=== PATIENT | male | born 2005 | race Caucasian/White ===

== ENCOUNTER 2023-11-13 06:12 | Emergency (ER) | payer OTHER, MEDICAID, SELFPAY ==
--- NOTE | 2023-11-13 06:14 | ED_ITS ---
HPI - General Adult General Time Seen by Provider: 06:14 Date Seen: 11/13/23 Chief complaint: Extremity Pain/Injury, Lower Stated complaint: knee injury/work comp Time Seen by Provider: 11/13/23 06:14 Source: patient, RN notes reviewed and old records reviewed Mode of arrival: ambulatory Limitations: no limitations History of Present Illness HPI narrative: 18-year-old male who presents today with knee injury. Patient was at work pushing a cart that tipped and subsequently rolled back and hit his left leg. Complains predominantly of pain in the left knee. Able to ambulate. Has not taken anything for this. Denies any other injuries Related Data Home Medications Medication Instructions Recorded Confirmed No Known Home Medications 11/13/23 11/13/23 Allergies Allergy/AdvReac Type Severity Reaction Status Date / Time No Known Drug Allergies Allergy Verified 11/13/23 07:04 PFSH PFS Social History Smoking Status: Former smoker What tobacco products do you use: cigarettes Smoking quit date/years: <= 15 years ago Do you use any of these nicotine containing products: Vaping Products Second hand tobacco smoke exposure: No How often do you have a drink containing alcohol: never AUDIT-C Alcohol total score: 0 Non-prescribed substance use: marijuana (any form) service: No Exam Narrative: Exam Narrative: General: well nourished , NAD Head: Atraumatic and normocephalic ENT: External ears and external nose are normal Eyes: Conjunctiva clear, pupils are equal reactive, external ocular motions are intact Neck: Full spontaneous range of motion of the neck Lungs: No respiratory distress Musculoskeletal: Tenderness along the medial joint line on the left, no bruising or swelling, quadriceps mechanism is intact, no joint effusion Neurologic: No gross focal neurologic deficits Skin: No rashes Psych: Mood and affect are appropriate Const: Vital Signs, click to edit/add: Vital Signs - 24 hr 11/13/23 06:32 Temperature 98.7 F Pulse Rate [Right Pulse Oximeter] 78 Respiratory Rate 20 Blood Pressure [Le ft Upper Arm] 115/71 Pulse Oximetry 98 Oxygen Delivery Me thod Room Air Course Course ED Course: Patient seen and examined, prior records are reviewed. Patient presents today with blunt injury of the left knee, denies twisting. On exam, no swelling or joint effusion, extensor mechanism intact, no laceration. Most likely contusion but given pain along the bony joint line medially, cannot exclude fractures or x-rays ordered. Ibuprofen ordered for pain Reevaluation(s) Time of Reevaluation #1: 07:36 Reevaluation #1: X-ray of the left knee independently interpreted by me does not demonstrate any acute bony abnormalities or effusion. Patient is stable for discharge with outpatient follow-up. Vital Signs Vital signs: Initial Vital Signs Temperature 98.7 F 11/13/23 06:32 Temperature Source Temporal Artery Scan 11/13/23 06:32 Pulse Rate 78 11/13/23 06:32 Pulse Rhythm Regular 11/13/23 06:32 Respiratory Rate 20 11/13/23 06:32 Blood Pressure 115/71 11/13/23 06:32 Blood Pressure Mean 85 11/13/23 06:32 Blood Pressure Position Sitting 11/13/23 06:32 Pulse Oximetry 98 11/13/23 06:32 Oxygen Delivery Method Room Air 11/13/23 06:32 Vital Signs Temperature 98.7 F 11/13/23 06:32 Pulse Rate 78 11/13/23 06:32 Respiratory Rate 20 11/13/23 06:32 Blood Pressure 115/71 11/13/23 06:32 Pulse Oximetry 98 11/13/23 06:32 Oxygen Delivery Method Room Air 11/13/23 06:32 Temperature 98.7 F 11/13/23 06:32 Pulse Rate 78 11/13/23 06:32 Respiratory Rate 20 11/13/23 06:32 Blood Pressure 115/71 11/13/23 06:32 Pulse Oximetry 98 11/13/23 06:32 Oxygen Delivery Method Room Air 11/13/23 06:32 Medications Administered Medications: Discontinued Medications Generic Name Dose Route Start Last Admin Trade Name Pastora PRN Reason Stop Dose Admin Ibuprofen 600 mg 11/13/23 07:00 11/13/23 07:15 Ibuprofen 200 Mg Tablet PO 11/13/23 07:01 600 mg ONCE ONE Administration Discharge Plan Discharge Clinical Impression: Contusion of knee, left Patient Disposition: Home, Self-Care Condition: Stable Instructions: Contusion in Adults (ED) Additional Instructions: Tylenol and ibuprofen as needed for pain Ice 15-20 minutes at a time every 2-3 hours while awake for 24 hours Discharge Diet: Regular Prescriptions: No Action No Known Home Medications Stand Alone [facility]: [facility] Info Inst[facility]
[2023-11-13 06:32] VITALS: BP 115/71; PULSE 78; RESP 20; TEMP 37.1; O2SAT 98; BMI 18.8
--- NOTE | 2023-11-13 06:45 | CRLHL7_ITS ---
For Patients: As a result of the Cures Act, medical imaging exams and procedure reports are released immediately into your electronic medical record. You may view this report before your referring provider. If you have questions, please contact your health care provider. Indication: Trauma, medial pain Technique: Three views Comparison: None Findings/Impression: Bones: Alignment is normal. No fractures or bone lesions. Joint spaces: Unremarkable. Soft tissues: Unremarkable. Dictated by Ramy Crespo MD @ 11/13/2023 8:12:49 AM (Electronically Signed)
--- OUTSIDE RECORDS SUMMARY | 2023-11-13 06:54 | XMS_ITS | Clinical Summary ---
Author Name Unknown Organization [facility] [facility] Address [place], [place] [address] Care Team Providers Care Consultant [employer]. Vice President [employer] (Ex ) Name Role Phone Clinic, [employer] [facility] Pro vider Allergies No known active allergies Medications No known medications Immunizations Name Administration Dates Next Due [id number] (Pediarix) 03/21/2004,01/13/2004,0 2003 HIB PRP-OMP (PedvaxHIB) 01/13/2004,2003 Hepatitis B (Peds) 2003 MMR 10/21/2004 Pneumococcal conj 7-Valent (Prevnar 7) 4,03/21/2004 Tuberculin (PPD) 06/08/2004 Varicella Vaccine 10/21/2004 Social History Tobacco Use Types Packs/Day Years Used Date Smoking Tobacco: Never Alcohol Use Standard Drinks/Week Comments No 0 (1 standard drink = 0.6 oz pur e alcohol) Sex and Gender Information Value Date Recorded Sex Assigned at Not on file Gender Identity Not on file Sexual Orientation Not on file Obstetrics History Last Filed Vital Signs Vital Sign Reading Time Taken Comments Blood Pressure 152/98 10/29/2022 5:48 PM PIE FILLER Pulse 88 10/29/2022 5:48 PM PIE FILLER Temperature 36.7 ??C (98.1 ??F) 10/29/2022 5:48 PM CS T Respiratory Rate 18 10/29/2022 5:48 PM PIE FILLER Oxygen Saturation 98% 10/29/2022 5:48 PM PIE FILLER Inhaled Oxygen Concentration - - Weight 60.1 kg (132 lb 8 oz) 10/29/2022 5:48 PM PIE FILLER Height 180.3 cm (5' 11) 10/29/2022 5:48 PM PIE FILLER Body Mass Index 18.48 10/29/2022 5:48 PM PIE FILLER Plan of Treatment Health Maintenance Due Date Last Done Comments COVID-19 vaccine series (#1) 03/16/2004 Well Child Check for age 3-20 09/11/2008 09/11/2007 HPV series for age 9-26 (1 - Male 2-dose series) 2014 Tdap 2014 Depression screening for age 12+ 2015 BMI (ht and wt on same day) for age 18+ 2021 Hepatitis C screening for ag e 18-79 2021 Influenza for age 9-49 06/08/2023 Tetanus booster 2023 Pneumococcal series for age 6-64 Aged Out 06/08/2004, 03/21/2004 No longer eligible based on patient's age to complete this topic HIV for age 15-65 Completed 10/14/2022 Meningococcal series for age 11-21 Aged Out No longer eligible b ased on patient's age to complete this topic Care Teams Consultant [employer]. Vice President [employer] (Ex ) Relationship Specialty Start Date End Date Clinic, [address] [address] PCP - General 06/07/21
--- OUTSIDE RECORDS SUMMARY | 2023-11-13 06:54 | XMS_ITS | Data Portability ---
Author Name Unknown Address [address] [place] [address] Phone [phone] Organization [place] [facility] Address [address] [place] [phone] Assessment No assessment recorded. Plan of Treatment Reminders Order Date Submit Date Provider Last Modified By Organization Details Last Modified Time Details Appointments None recorded. Lab rapid strep group A, throat 2021 022 [facility], [address] [place] [address], [phone], 17:33:36 H pylori Ag, stool 2021 022 einamagua Not available 19:27:38 Referral None recorded. Procedures None recorded. Surgeries None recorded. Imaging None recorded. Medication Orders omeprazole 40 mg capsule,de layed release 2021 022 [facility], [address] [place], [address], 17:50:34 Patient TargetsNo targets recorded. Patient Instructions Encounter Date Encounter Id Patient Instructions Last Modified By Organization Details Last Modified Time 08/21/2022 [id number] gargle, rtc if not improved sonya Not available 08/21/2022 20:16:44 note written sonya Not available 20:17:53 10/27/2021 [id number] eat slowly and avoid any foods that cause queeziness sonya Not available 10/27/2021 12:16:01 Reason for Referral None Reported. Results Created Date Observation Date Name Description Value Unit Range Abnormal Flag LastModifiedBy Organization Detail LastModifiedTime Result Notes None recorded. Medical Equipment None Reported. Allergies No known drug allergies Medications Name Sig Start Date Stop Date Status Note LastModified by Organization Details LastModified Time omeprazole 40 mg capsule,joe yed release TAKE 1 CAPSULE EVERY DAY BY ORAL ROUTE. active Not Available Not Available No t Available omeprazole 20 mg capsule,joe yed release TAKE 1 CAPSULE EVERY DAY BY ORAL ROUTE. active Not Available Not Available No t Available COVID-19 test specimen collection TEST DIRECTED active Not Available Not Available No t Available Vitals Date Recorded Body weight Systolic blood pressure Diastolic blood pressure Provider Name and Address Organization Details Last Updated DateTime 10/27/2021 44000.79 g 123 mm[Hg] 72 mm[Hg] Quincy Kincaid MD [address] [place] [address], [phone], [facility] 10/27/2021 12:11:27 Date Recorded Body temperature Provider Name a pa Address Organization Details Last Updated DateTime 08/21/2022 98.6 [degF] Jennifer La [address] [place] [address], [phone], [facility] 08/21/2022 20:13:20 Social History None recorded. Functional Status None recorded. Mental Status None recorded. Family History Nothing Reported. Medical History No medical history recorded. Past Encounters Encounter ID Performer Location Encounter Start Date Encounter Closed Date Diagnosis/Indication Quincy Kincaid MD [facility] [address] [place] [id number] 10/27/2021 11:48:44 10/27/2021 12:15:21 Mild dietary indigestion [id number] CHARLEY NESBITT [facility] [address] [place] [id number] 11/02/2021 16:54:34 11/02/2021 17:17:50 [id number] Quincy Kincaid MD [facility] [address] [place] [id number] 08/21/2022 16:33:22 08/21/2022 17:46:16 Pain in throat Health Concerns Section Related Observation LastModified by Organization Detai ls LastModified Time None Recorded Concern Status LastModified by Organization Details LastModified Time None Recorded Advance Directives Directive None Recorded Payers Encounter Date Sequence Insurance Name Policy Number Policy Ortiz Covered Member ID Ortiz Member ID Guarantor Name 08/21/2022 SLIDING FEE SCHEDULE - DISCOUNT Jayro Bautista 11/02/2021 SLIDING FEE SCHEDULE - DISCOUNT Jayro Givenshlke 10/27/2021 SLIDING FEE SCHEDULE - DISCOUNT Jayro Bautista Notes Date Note Type Note Provider Name and Address Organization Details Recorded Time 10/27/2021 text/html HPI Notes: several days of quezzy stomach, over eating last week end and some reflux sx, no odyno or dysphagia, no melena but down two lbs, had COVID and has some diff with taste and smell Quincy Kincaid MD [address] [facility] [place], [phone], [facility] 10/27/2021 12:16:21 11/02/2021 text/html HPI Notes: scheduled for covid vaccine, pt was a no show CHARLEY NESBITT [address] [facility] [place], [phone], [facility] 12/21/2021 11:40:06
[2023-11-13] MEDS: IBUPROFEN 200 MG TABLET 600 MG PO (07:15)
== END 2023-11-13 07:55 | disposition home or self-care (01) ==
PROVIDERS: Emergency Provider Family Medicine
DX: S80.02XA Contusion of left knee, initial encounter (principal); W22.8XXA Striking against or struck by other objects, initial encounter
CPT/HCPCS: 73562; 99283; 99284; A9270

== ENCOUNTER 2024-02-21 16:34 | Emergency (ER) | payer OTHER, SELFPAY ==
[2024-02-21 16:55] VITALS: BP 126/75; PULSE 87; RESP 16; TEMP 36.9; O2SAT 98; BMI 19.5
--- NOTE | 2024-02-21 18:35 | ED.WOUNDLAC ---
HPI - Wound/Laceration General Chief Complaint: Laceration/Wound Stated Complaint: cut on R pinky Time Seen by Provider: 02/21/24 17:59 History of Present Illness HPI narrative: This 18-year-old male comes in with a laceration to his right hand that occurred at work prior to arrival. He was attempting to lift a washer and somehow cut his right hand. He has a 1.5 cm linear laceration on the palmar aspect of the MP joint of the 5th digit on his right hand. His last tetanus was administered 8 years ago. Related Data Previous Rx's Medication Instructions Recorded omeprazole 20 mg capsule,delayed 20 mg PO QDAY #90 caps 02/06/24 release Allergies Allergy/AdvReac Type Severity Reaction Status Date / Time No Known Drug Allergies Allergy Verified 02/06/24 15:40 Review of Systems Status of ROS: Reports: 10 or more systems reviewed and unremarkable except as noted in History and below Narrative: Constitutional: No fevers, no weight gain or loss. Eyes: No discharge. No vision changes. HENT: No congestion, no sore throat, no ear pain. Cardiovascular: No chest pain, no palpitations. Respiratory: No shortness of breath, no wheezes, no cough. Gastrointestinal: No abdominal pain, no vomiting, no diarrhea. Genitourinary: No dysuria, no hematuria. Musculoskeletal: Normal range of motion. Skin: No rashes, no pruritis. Neurological: No dizziness, weakness, sensory change, speech change. Endo/Heme/Allergies: No bruising or bleeding. No polydipsia. Pysch: no suicidality, no anxiety, no insomnia. All other systems reviewed and are negative. [facility] Social History (Updated 11/13/23 @ 07:42 by Tejinder Peralta MD) Smoking Status: Former smoker What tobacco products do you use: cigarettes Smoking quit date/years: <= 15 years ago Do you use any of these nicotine containing products: Vaping Products Second hand tobacco smoke exposure: No How often do you have a drink containing alcohol: never AUDIT-C Alcohol total score: 0 Non-prescribed substance use: marijuana (any form) service: No Exam Narrative: Exam Narrative: Constitutional: Well-developed, well-nourished, no acute distress. HEENT: Normocephalic, atraumatic. Neck: Normal range of motion. Nontender. Supple. Heart: Intact distal pulses. Lungs: No chest discomfort. No wheezes, rhonchi, or rales. Abdomen: Nontender. Back: Normal range of motion. Extremities: Normal range of motion. 1.5 cm linear laceration on the palm of the right hand as described above. Skin: Intact. No rash. Warm. No erythema or pallor. Neurologic: No altered sensation. No weakness. Alert and oriented. Psychiatric: No suicidality. No anxiety or depression. No insomnia. Nursing notes and vitals signs are reviewed. Const: Vital Signs, click to edit/add: Vital Signs - 24 hr 02/21/24 16:55 Temperature 98.5 F Pulse Rate [Left P ulse Oximeter] 87 Respiratory Rate 16 Blood Pressure [Ri ght Upper Arm] 126/75 Pulse Oximetry 98 Oxygen Delivery Me thod Room Air Course Vital Signs Vital signs: Initial Vital Signs Temperature 98.5 F 02/21/24 16:55 Temperature Source Temporal Artery Scan 02/21/24 16:55 Pulse Rate 87 02/21/24 16:55 Respiratory Rate 16 02/21/24 16:55 Blood Pressure 126/75 02/21/24 16:55 Blood Pressure Mean 92 02/21/24 16:55 Pulse Oximetry 98 02/21/24 16:55 Oxygen Delivery Method Room Air 02/21/24 16:55 Vital Signs Temperature 98.5 F 02/21/24 16:55 Pulse Rate 87 02/21/24 16:55 Respiratory Rate 16 02/21/24 16:55 Blood Pressure 126/75 02/21/24 16:55 Pulse Oximetry 98 02/21/24 16:55 Oxygen Delivery Method Room Air 02/21/24 16:55 Temperature 98.5 F 02/21/24 16:55 Pulse Rate 87 02/21/24 16:55 Respiratory Rate 16 02/21/24 16:55 Blood Pressure 126/75 02/21/24 16:55 Pulse Oximetry 98 02/21/24 16:55 Oxygen Delivery Method Room Air 02/21/24 16:55 MDM - Wound/Laceration MDM Narrative Medical decision making narrative: As patient has a laceration on his right hand. The wound was cleansed and the patient is requesting Dermabond repair. This was done with excellent results. A Band-Aid was then applied and instructions regarding wound care were given. Discharge Plan Discharge Clinical Impression: Laceration Patient Disposition: Home, Self-Care Condition: Improved Additional Instructions: Keep wound clean and dry and increase activity as tolerated. Follow up with MD return if worsening. Prescriptions: No Action omeprazole 20 mg capsule,delayed release(DR/EC) 20 mg PO QDAY Qty: 90 3RF Follow Up/Referrals: Provider,Not a Local [Primary Care Provider] - Stand Alone Forms: [facility] Info Instructions
[2024-02-21 19:02] VITALS: BP 126/75; PULSE 87; RESP 16; TEMP 36.9
--- OUTSIDE RECORDS SUMMARY | 2024-02-21 19:03 | XMS_ITS | Clinical Summary ---
Author Name Unknown Organization [facility] Address [place], [place] [address] Care Team Providers Care Lifestyle Consultant Name Role Phone Clinic, [facility] Primary [facility] Pro vider Allergies No known active allergies Medications No known medications Immunizations Name Administration Dates Next Due [id number] (Pediarix) 03/21/2004,01/13/2004,0 2003 HIB PRP-OMP (PedvaxHIB) 01/13/2004,2003 [...] Comments Blood Pressure 152/98 10/29/2022 5:48 PM FIELD NURSE CASE MANAGER Pulse 88 10/29/2022 5:48 PM FIELD NURSE CASE MANAGER Temperature 36.7 ??C (98.1 ??F) 10/29/2022 5:48 PM CS T Respiratory Rate 18 10/29/2022 5:48 PM FIELD NURSE CASE MANAGER Oxygen Saturation 98% 10/29/2022 5:48 PM FIELD NURSE CASE MANAGER Inhaled Oxygen Concentration - - Weight 60.1 kg (132 lb 8 oz) 10/29/2022 5:48 PM FIELD NURSE CASE MANAGER Height 180.3 cm (5' 11) 10/29/2022 5:48 PM FIELD NURSE CASE MANAGER Body Mass Index 18.48 10/29/2022 5:48 PM FIELD NURSE CASE MANAGER Plan of Treatment Health Maintenance Due Date Last Done Comments Well Child Check for age 3-20 09/11/2008 09/11/2007 Tdap 2014 Depression screening for age 12+ 2015 HPV series for age 9-26 (1 - Male 3-dose series) 2018 BMI (ht and wt on same day) for age 18+ 2021 Hepatitis C screening for ag e 18-79 2021 COVID-19 vaccine series ( - 2022- season) 2023 Tetanus booster 2023 Influenza for age 9-49 06/08/2024 Pneumococcal series for age 6-64 Aged Out 06/08/2004, 03/21/2004 No longer eligible based on patient's age to complete this topic HIV for age 15-65 Completed 10/14/2022 Meningococcal series for age 11-21 Aged Out No longer eligible b ased on patient's age to complete this topic Procedures Procedure Name Priority Date/Time Associated Diagnosis Comments LC HIV-1/O/2, 4TH GENERATION STAT 10/14/2022 11:24 AM FIELD NURSE CASE MANAGER from Last 3 Months or Most Recently Relevant to Health Maintenance Results * LC HIV-1/O/2, 4TH GENERATION (10/14/2022 11:24 AM FIELD NURSE CASE MANAGER) HIV Scr 4th Gen Non Reactive Non Reactive 10/18/2022 9:10 AM [facility] Comment: HIV Negative HIV-1/HIV-2 antibodies and HIV-1 p24 antigen were NOT detected. There is no laboratory evidence of HIV infection. Blood BLOOD SPECIMEN / Unknown Venipuncture / Unknown 10/14/2022 11:24 AM FIELD NURSE CASE MANAGER 10/14/2022 11:27 AM FIELD NURSE CASE MANAGER Narrative [facility] - 10/18/2022 9:10 AM FIELD NURSE CASE MANAGER Performed at: ??01 - [facility] [address] [address], [place], [place] [phone] Discotheque Dancer: Delvin Rapp MD, Phone: ??[phone] Ophelia Bobby MD LABORATOR Y [facility] ([facility] [address] [place] [address], from Last 3 Months or Most Recently Relevant to Health Maintenance Care Teams Lifestyle Consultant Relationship Specialty Start Date End Date [facility], [address] [address] PCP - General 06/07/21
--- OUTSIDE RECORDS SUMMARY | 2024-02-21 19:03 | XMS_ITS | Data Portability ---
Author Name Unknown Address [address] [place] [address] Phone [phone] Organization [place] [facility] Address [address] [place] [phone] Assessment No assessment recorded. Plan of Treatment Reminders Order Date Submit Date Provider Last Modified By Organization Details Last Modified Time Details Appointments None recorded. Lab rapid strep group A, throat 2021 022 [facility], [address] [place] [address], [phone], 17:33:36 H pylori Ag, stool 2021 022 einamagua Not available 19:27:38 Referral None recorded. Procedures None recorded. Surgeries None recorded. Imaging None recorded. Medication Orders omeprazole 40 mg capsule,de layed release 2021 022 [facility], [address] [place], [address], 17:50:34 Patient TargetsNo targets recorded. Patient Instructions Encounter Date Encounter Id Patient Instructions Last Modified By Organization Details Last Modified Time 08/21/2022 [id number] gargle, rtc if not improved sonya Not available 08/21/2022 20:16:44 note written sonya Not available 20:17:53 10/27/2021 [id number] eat slowly and avoid any foods that [...] Address Organization Details Last Updated DateTime 10/27/2021 81312.79 g 123 mm[Hg] 72 mm[Hg] Quincy Kincaid MD [address] [place] [address], [phone], [facility] 10/27/2021 12:11:27 Date Recorded Body temperature Provider Name a nd Address Organization Details Last Updated DateTime 08/21/2022 98.6 [degF] Jennifer La [address] [place] [address], [phone], [facility] 08/21/2022 20:13:20 Social History None recorded. Functional Status None recorded. Mental Status None recorded. Family History Nothing Reported. Medical History No medical history recorded. Past Encounters Encounter ID Performer Location Encounter Start Date Encounter Closed Date Diagnosis/Indication Diagnosis SNOMED-CT Code [id number] Quincy Kincaid MD [facility] [address] [place] [phone] 10/27/2021 11:48:44 10/27/2021 12:15:21 Mild dietary indigestion [id number] CHARLEY NESBITT [facility] [address] [place] [id number] 11/02/2021 16:54:34 11/02/2021 17:17:50 [id number] Quincy Kincaid MD [facility] [address] [place] [phone] 08/21/2022 16:33:22 08/21/2022 17:46:16 Pain in throat [id number] Health Concerns Section Related Observation LastModified by Organization Detai ls LastModified Time None Recorded Concern Status LastModified by Organization Details LastModified Time None Recorded Advance Directives Directive None Recorded Payers Encounter Date Sequence Insurance Name Policy Number Policy Ortiz Covered Member ID Ortiz Member ID Guarantor Name 08/21/2022 SLIDING FEE SCHEDULE - DISCOUNT Jayro Felderke 11/02/2021 SLIDING FEE SCHEDULE - DISCOUNT Jayro [...] taste and smell Quincy Kincaid MD [address] [place], [address], [facility] [employer] 10/27/2021 12:16:21 11/02/2021 text/html HPI Notes: scheduled for covid vaccine, pt was a no show CHARLEY NESBITT [address] [facility] [place], [phone], [facility] [employer] 12/21/2021 11:40:06
== END 2024-02-21 19:05 | disposition home or self-care (01) ==
PROVIDERS: Emergency Provider Emergency Medicine Emergency Medical Services
DX: S61.216A Laceration without foreign body of right little finger without damage to nail, initial encounter (principal); W26.9XXA Contact with unspecified sharp object(s), initial encounter
CPT/HCPCS: 12001; 99283; 99284

== ENCOUNTER 2024-02-23 10:08 | Emergency (ER) | payer OTHER, SELFPAY ==
[2024-02-23 10:16] VITALS: BP 131/72; PULSE 62; RESP 16; TEMP 36.8; O2SAT 99; BMI 19.5
--- OUTSIDE RECORDS SUMMARY | 2024-02-23 11:10 | XMS_ITS | Clinical Summary ---
Author Name Unknown Organization [facility] Address [place], [place] [address] Care Team Providers Care Core Man Name Role Phone Clinic, [facility] Primary [facility] Pro vider Allergies No known active allergies Medications No known medications Immunizations Name Administration Dates Next Due [id number] (Pediarix) 03/21/2004,01/13/2004,0 2003 HIB PRP-OMP (PedvaxHIB) 01/13/2004,2003 [...] Comments Blood Pressure 152/98 10/29/2022 5:48 PM PRODUCTION GEAR CUTTER Pulse 88 10/29/2022 5:48 PM PRODUCTION GEAR CUTTER Temperature 36.7 ??C (98.1 ??F) 10/29/2022 5:48 PM CS T Respiratory Rate 18 10/29/2022 5:48 PM PRODUCTION GEAR CUTTER Oxygen Saturation 98% 10/29/2022 5:48 PM PRODUCTION GEAR CUTTER Inhaled Oxygen Concentration - - Weight 60.1 kg (132 lb 8 oz) 10/29/2022 5:48 PM PRODUCTION GEAR CUTTER Height 180.3 cm (5' 11) 10/29/2022 5:48 PM PRODUCTION GEAR CUTTER Body Mass Index 18.48 10/29/2022 5:48 PM PRODUCTION GEAR CUTTER Plan of Treatment Health Maintenance Due Date [...] HIV-1/O/2, 4TH GENERATION STAT 10/14/2022 11:24 AM PRODUCTION GEAR CUTTER from Last 3 Months or Most Recently Relevant to Health Maintenance Results * LC HIV-1/O/2, 4TH GENERATION (10/14/2022 11:24 AM PRODUCTION GEAR CUTTER) HIV Scr 4th Gen Non Reactive Non Reactive 10/18/2022 9:10 AM [facility] ([facility]) Comment: HIV Negative HIV-1/HIV-2 antibodies and HIV-1 p24 antigen were NOT detected. There is no laboratory evidence of HIV infection. Blood BLOOD SPECIMEN / Unknown Venipuncture / Unknown 10/14/2022 11:24 AM PRODUCTION GEAR CUTTER 10/14/2022 11:27 AM PRODUCTION GEAR CUTTER Narrative [facility] ([facility]) - 10/18/2022 9:10 AM PRODUCTION GEAR CUTTER Performed at: ??01 - [facility] [address] [address], [place], [place] ??[id number] Director Of Marketing Analytics: Delvin Rapp MD, Phone: ??[phone] Ophelia Bobby MD LABORATOR Y [facility] (CET) [address] [place] [address], from Last 3 Months or Most Recently Relevant to Health Maintenance Care Teams Core Man Relationship Specialty Start Date End Date [facility], [address] [address] PCP - General 06/07/21
--- OUTSIDE RECORDS SUMMARY | 2024-02-23 11:10 | XMS_ITS | Data Portability ---
Author Name Unknown Address [address] [place] [address] Phone [phone] Organization [place] [facility] Address [address] [place] [phone] Assessment No assessment recorded. Plan of Treatment Reminders Order Date Submit Date Provider Last Modified By Organization Details Last Modified Time Details Appointments None recorded. Lab rapid strep group A, throat 2021 022 [facility], [address] [place] [address], [phone], 17:33:36 H pylori Ag, stool 2021 022 [facility] Not available 19:27:38 Referral None recorded. Procedures None recorded. Surgeries None recorded. Imaging None recorded. Medication Orders omeprazole 40 mg capsule,de layed release 2021 022 [facility] [place], [address] [place], [address], 17:50:34 Patient TargetsNo targets recorded. Patient Instructions Encounter Date Encounter Id Patient Instructions Last Modified By Organization Details Last Modified Time 08/21/2022 [id number] gargle, rtc if not improved sonya Not available 08/21/2022 20:16:44 note written sonya Not available 20:17:53 10/27/2021 [id number] eat slowly and avoid any foods that [...] Address Organization Details Last Updated DateTime 10/27/2021 04414.79 g 123 mm[Hg] 72 mm[Hg] Quincy Kincaid MD [address] [place] [address], [phone], [facility] 10/27/2021 12:11:27 Date Recorded Body temperature Provider Name a nd Address Organization Details Last Updated DateTime 08/21/2022 98.6 [degF] Jennifer La [address] [place] [address], [phone], [facility] 08/21/2022 20:13:20 Social History None recorded. Functional Status None recorded. Mental Status None recorded. Family History Nothing Reported. Medical History No medical history recorded. Past Encounters Encounter ID Performer Location Encounter Start Date Encounter Closed Date Diagnosis/Indication Diagnosis SNOMED-CT Code [id number] Quincy Kincaid MD [facility] [address] [place] [phone] 10/27/2021 11:48:44 10/27/2021 12:15:21 Mild dietary indigestion [id number] CHARLEY NESBITT [facility] [address] [place] [phone] 11/02/2021 16:54:34 11/02/2021 17:17:50 [id number] Quincy Kincaid MD [facility] [address] [place] [phone] 08/21/2022 16:33:22 08/21/2022 17:46:16 Pain in throat [id number] Health Concerns Section Related Observation LastModified by Organization Detai ls LastModified Time None Recorded Concern Status LastModified by Organization Details LastModified Time None Recorded Advance Directives Directive None Recorded Payers Encounter Date Sequence Insurance Name Policy Number Policy Ortiz Covered Member ID Ortiz Member ID Guarantor Name 08/21/2022 SLIDING FEE SCHEDULE - DISCOUNT Jayro Felderke 11/02/2021 SLIDING FEE SCHEDULE - DISCOUNT Jayor Givenshlke 10/27/2021 SLIDING FEE SCHEDULE - DISCOUNT [...] taste and smell Quincy Kincaid MD [address] [place], [phone], [facility] [employer] 10/27/2021 12:16:21 11/02/2021 text/html HPI Notes: scheduled for covid vaccine, pt was a no show CHARLEY NESBITT [address] [facility] [place], [phone], [facility] [employer] 12/21/2021 11:40:06
--- NOTE | 2024-02-23 11:16 | ED.WOUNDLAC ---
HPI - Wound/Laceration General Chief Complaint: Laceration/Wound Stated Complaint: L hand lac Time Seen by Provider: 02/23/24 10:54 History of Present Illness HPI narrative: This 18-year-old male has a laceration to his right hand that was repaired by me a couple days ago. He has a 1.5 cm linear laceration on the palmar aspect of his right hand overlying the MP joint of his 5th metatarsal and phalanges. He comes in today because he continues to work at [email or web address] and noticed that there was some bleeding from the wound. There is a small opening on the medial aspect of the wound did cause some bleeding but the rest of the wound is yet intact with the Dermabond repair that was applied. Related Data Previous Rx's Medication Instructions Recorded omeprazole 20 mg capsule,delayed 20 mg PO QDAY #90 caps 02/06/24 release Allergies Allergy/AdvReac Type Severity Reaction Status Date / Time No Known Drug Allergies Allergy Verified 02/06/24 15:40 Review of Systems Status of ROS: Reports: 10 or more systems reviewed and unremarkable except as noted in History and below Narrative: Constitutional: No fevers, no weight gain or loss. Eyes: No discharge. No vision changes. HENT: No congestion, no sore throat, no ear pain. Cardiovascular: No chest pain, no palpitations. Respiratory: No shortness of breath, no wheezes, no cough. Gastrointestinal: No abdominal pain, no vomiting, no diarrhea. Genitourinary: No dysuria, no hematuria. Musculoskeletal: Normal range of motion. Skin: No rashes, no pruritis. Neurological: No dizziness, weakness, sensory change, speech change. Endo/Heme/Allergies: No bruising or bleeding. No polydipsia. Pysch: no suicidality, no anxiety, no insomnia. All other systems reviewed and are negative. [facility] Social History (Updated 11/13/23 @ 07:42 by Tejinder Peralta MD) Smoking Status: Former smoker What tobacco products do you use: cigarettes Smoking quit date/years: <= 15 years ago Do you use any of these nicotine containing products: Vaping Products Second hand tobacco smoke exposure: No How often do you have a drink containing alcohol: never AUDIT-C Alcohol total score: 0 Non-prescribed substance use: marijuana (any form) service: No Exam Narrative: Exam Narrative: Constitutional: Well-developed, well-nourished, no acute distress. HEENT: Normocephalic, atraumatic. Neck: Normal range of motion. Nontender. Supple. Heart: Intact distal pulses. Lungs: No chest discomfort. No wheezes, rhonchi, or rales. Abdomen: Nontender. Back: Normal range of motion. Extremities: Normal range of motion. Laceration to the right hand is mostly intact in its repair that was done a couple days ago however the edge of the wound does have a small opening where there was some bleeding previously but no current active bleeding. Skin: Intact. No rash. Warm. No erythema or pallor. Neurologic: No altered sensation. No weakness. Alert and oriented. Psychiatric: No suicidality. No anxiety or depression. No insomnia. Nursing notes and vitals signs are reviewed. Const: Vital Signs, click to edit/add: Vital Signs - 24 hr 02/23/24 10:16 Temperature 98.3 F Pulse Rate [Pulse Oximeter] 62 Respiratory Rate 16 Blood Pressure [Ri ght Upper Arm] 131/72 Pulse Oximetry 99 Course Vital Signs Vital signs: Initial Vital Signs Temperature 98.3 F 02/23/24 10:16 Temperature Source Temporal Artery Scan 02/23/24 10:16 Pulse Rate 62 02/23/24 10:16 Respiratory Rate 16 02/23/24 10:16 Blood Pressure 131/72 02/23/24 10:16 Blood Pressure Mean 91 02/23/24 10:16 Pulse Oximetry 99 02/23/24 10:16 Vital Signs Temperature 98.3 F 02/23/24 10:16 Pulse Rate 62 02/23/24 10:16 Respiratory Rate 16 02/23/24 10:16 Blood Pressure 131/72 02/23/24 10:16 Pulse Oximetry 99 02/23/24 10:16 Temperature 98.3 F 02/23/24 10:16 Pulse Rate 62 02/23/24 10:16 Respiratory Rate 16 02/23/24 10:16 Blood Pressure 131/72 02/23/24 10:16 Pulse Oximetry 99 02/23/24 10:16 MDM - Wound/Laceration MDM Narrative Medical decision making narrative: This patient has a laceration on his right hand that he comes in for further attention as that began to bleed as he was at work and using his hand. The Dermabond repair broke down on the edge of the wound causing small amount of bleeding. The wound is looking good without any sign of infection. I did reapply Dermabond and followed this with a Steri-Strip. Instructions were given regarding wound management. The patient's tetanus status is up-to-date. Discharge Plan Discharge Clinical Impression: Laceration Patient Disposition: Home, Self-Care Condition: Stable Additional Instructions: Keep wound clean and dry. Use gloves for protection and increase activity as tolerated. Follow up with MD return if worsening. Prescriptions: No Action omeprazole 20 mg capsule,delayed release(DR/EC) 20 mg PO QDAY Qty: 90 3RF Follow Up/Referrals: Provider,Not a Local [Primary Care Provider] - Stand Alone Forms: Instilling Values Info Instructions
== END 2024-02-23 11:43 | disposition home or self-care (01) ==
PROVIDERS: Emergency Provider Emergency Medicine Emergency Medical Services
DX: S61.411A Laceration without foreign body of right hand, initial encounter (principal)
CPT/HCPCS: 12001; 99282; 99284

== ENCOUNTER 2024-03-20 13:41 | Outpatient (CLI) | payer OTHER, SELFPAY ==
--- OUTSIDE RECORDS SUMMARY | 2024-03-20 13:50 | XMS_ITS | Clinical Summary ---
Author Organization [facility] Address [place], [place] [address] Care Team Providers Care Claim Service Representative Name Role Phone Clinic, [facility] [place] [facility] Pro vider Allergies No known active allergies Medications No known medications Immunizations Name Administration Dates Next Due [id number] (Pediarix) 03/21/2004,01/13/2004,0 2003 HIB PRP-OMP (PedvaxHIB) 01/13/2004,2003 [...] Comments Blood Pressure 152/98 10/29/2022 5:48 PM FORENSIC TOXICOLOGIST Pulse 88 10/29/2022 5:48 PM FORENSIC TOXICOLOGIST Temperature 36.7 ??C (98.1 ??F) 10/29/2022 5:48 PM CS T Respiratory Rate 18 10/29/2022 5:48 PM FORENSIC TOXICOLOGIST Oxygen Saturation 98% 10/29/2022 5:48 PM FORENSIC TOXICOLOGIST Inhaled Oxygen Concentration - - Weight 60.1 kg (132 lb 8 oz) 10/29/2022 5:48 PM FORENSIC TOXICOLOGIST Height 180.3 cm (5' 11) 10/29/2022 5:48 PM FORENSIC TOXICOLOGIST Body Mass Index 18.48 10/29/2022 5:48 PM FORENSIC TOXICOLOGIST Plan of Treatment Health Maintenance Due Date Last Done Comments Well Child Check for age 3-20 09/11/2008 09/11/2007 Tdap 2014 Depression screening for age 12+ 2015 HPV series for age 9-26 (1 - Male 3-dose series) 2018 BMI (ht and wt on same day) for age 18+ 2021 Hepatitis C screening for ag e 18-79 2021 COVID-19 vaccine series ( - 2022-24 season) 2023 Tetanus booster 2023 Influenza for [...] HIV-1/O/2, 4TH GENERATION STAT 10/14/2022 11:24 AM FORENSIC TOXICOLOGIST from Last 3 Months or Most Recently Relevant to Health Maintenance Results * LC HIV-1/O/2, 4TH GENERATION (10/14/2022 11:24 AM FORENSIC TOXICOLOGIST) HIV Scr 4th Gen Non Reactive Non Reactive 10/18/2022 9:10 AM FORENSIC TOXICOLOGIST [facility] Comment: HIV Negative HIV-1/HIV-2 antibodies and HIV-1 p24 antigen were NOT detected. There is no laboratory evidence of HIV infection. Blood BLOOD SPECIMEN / Unknown Venipuncture / Unknown 10/14/2022 11:24 AM FORENSIC TOXICOLOGIST 10/14/2022 11:27 AM FORENSIC TOXICOLOGIST Narrative [facility] ([facility]) - 10/18/2022 9:10 AM FORENSIC TOXICOLOGIST Performed at: ??01 - [facility] [address] [address], [place], [place] ??[id number] Parent Coach: Delvin Rapp MD, Phone: ??[phone] Ophelia Erlinda Carlone MD LABORATOR Y [facility] ([facility]ET) [facility] [place] [address], from Last 3 Months or Most Recently Relevant to Health Maintenance Care Teams Claim Service Representative Relationship Specialty Start Date End Date Clinic, [address] [address] PCP - General 06/07/21
[2024-03-20 23:47] LABS: Chlamydia DNA Amplified* NOT DETECTED (No Detected); GC DNA Amplified* NOT DETECTED (No Detected)
== END 2024-03-20 13:42 | disposition home or self-care (01) ==
PROVIDERS: PCP Family Medicine; Visit Provider Nurse Practitioner Family
DX: R10.2 Pelvic and perineal pain (principal)
CPT/HCPCS: 87086; 87491; 87591

== ENCOUNTER 2025-08-17 12:02 | Outpatient (CLI) | payer MEDICAID, SELFPAY | END 2025-08-17 12:03 | disposition home or self-care (01) | PROVIDERS: PCP Family Medicine; Visit Provider Physician Assistant Surgical | DX: R09.1 Pleurisy (principal) | CPT/HCPCS: 85379; 85651; 86140; 86141 ==